=== PATIENT | female | born 1940 | race Caucasian/White ===

== ENCOUNTER 2023-10-16 08:26 | Outpatient (AMB) | payer MEDICARE, SELFPAY ==
--- NOTE | 2023-10-16 08:33 | A.OFFVIS_ITS ---
Vital Signs 10/16/23 08:36 Height 5 ft 7 in Weight 185 lb BMI 29.0 BP 127/67 Blood Pressure Location Lt brachial Position Sitting Respiration 14 Pulse 100 Pulse Source Pulse Oximeter Pulse Oximetry (%) 96 Oxygen Delivery Method Room Air Intake Visit Reasons: Right knee pain/Injection Allergies penicillin G Allergy (Unknown, Verified 10/16/23 08:37) Unknown Sulfa (Sulfonamide Antibiotics) Allergy (Unknown, Verified 10/16/23 08:37) Unknown dyes Allergy (Unknown, Uncoded 10/16/23 08:37) hyves Medication List - Last Reconciled 10/16/23 by Cookie Hollis LPN aspirin (Adult Aspirin Regimen) 81 mg PO DAILY cholecalciferol (vitamin D3) 25 mcg PO DAILY folic acid 0.8 mg PO DAILY gabapentin 300 mg PO DAILY lactobacillus combination no.9 (Adult 50 Plus Probiotic) 4,000 mmu cells PO DAILY lisinopril 20 mg PO DAILY magnesium aspart,citrate,oxide mg PO spironolactone mg PO HPI HPI Right knee pain/Injection: Details: 83-year-old female who presents today to the office for a right knee pain/injection. Denies any recent cough, cold, infection, fever or other significant changes in medical history since last office visit.? She reports knee pain that started more than 5 years ago. She has low back pain that radiates down to the right leg and great toe. The pain is usually 7-8/10 intensity. She states that hiking and climbing makes the pain worse. She has a history of end-stage OA of the knees and gets knee injections every three months. She had fractured her right leg above the ankle in the past. She was using an ankle brace and had completed physical therapy. She does swim at [employer]. She uses a wooden cane for ambulation. She will travel on October 29, 2023, and wants her knee injected prior. [facility] Medical History (Updated 10/20/23 @ 13:43 by George Hill MD) Urinary frequency Unspecified osteoarthritis, unspecified site Sciatica of right side Polyp of sigmoid colon LBBB (left bundle branch block) Impaired gait Hypomagnesemia HTN (hypertension) History of COVID-19 Family history of nephrolithiasis Cataracts, bilateral Arthritis of right knee Aneurysm, ascending aorta Surgical History (Updated 10/16/23 @ 04:21 by Pancho Alberto) History of cholecystectomy History of oophorectomy, unilateral H/O: hysterectomy Review of Systems Const All systems reviewed & are unremarkable except as noted in HPI and below Physical Exam Vital Signs: Last Vital Signs Pulse 100 10/16/23 08:36 Resp 14 10/16/23 08:36 BP 127/67 10/16/23 08:36 Pulse Ox 96 10/16/23 08:36 Oxygen Delivery Method Room Air 10/16/23 08:36 BMI result Body Mass Index 29.0 General: Appears afebrile. Alert and oriented. Mood and affect appropriate. Follows and participates in conversation appropriately. Respiratory effort is unlabored. Able to transition from sit to stand unassisted. Ambulates with bilaterally normal heel strike and toe off. Office Procedures Joint Injection/Aspiration Joint Injection/Aspiration Details: Right knee intraarticular injection, US guided. Primary Site: right knee Prep: site was prepped using sterile technique Injected: 40 mg of, Kenalog, with 3 mL of and 1% plain lidocaine Approach Used: anteromedial Procedure: The patient tolerated the procedure well Coding Details: An ultrasound image of the injection was taken and stored in the permanent record. - Large joint (right, US guided) Procedure code (CPT) selection complete Results Reviewed Results Reviewed: No imaging is available for review. Assessment & Plan Assessment & Plan (1) Arthritis of right knee: Code(s): M17.11 - Unilateral primary osteoarthritis, right knee Category: Medical Plan Patient is status post right knee intraarticular injection, US guided. Patient tolerated procedure well and was discharged home in stable condition with discharge instructions.? All questions were answered. Follow-up as needed. In case of lack of response, may repeat injection via different approach. Scribed for Dr. Hill by Pancho Alberto, medical technologist chemistry, on 10/16/2023. I, Dr. Hill, have personally reviewed and agree with the information entered by the scribe. Coding Level of Care Code New Pt Level 3 (29150) Diagnoses Arthritis of right knee M17.11 CPT Codes Coding - Large joint: 43867 - Large joint ([id number])
[2023-10-16 08:36] VITALS: BP 127/67; PULSE 100; RESP 14; O2SAT 96; BMI 29.0
== END 2023-10-16 09:01 | disposition home or self-care (01) ==
PROVIDERS: PCP Internal Medicine; Visit Provider Internal Medicine
DX: M17.11 Unilateral primary osteoarthritis, right knee (principal)
CPT/HCPCS: 20611; 99203

== ENCOUNTER → 2023-10-16 08:26 | Outpatient (BNVA) | payer MEDICARE, SELFPAY | PROVIDERS: PCP Internal Medicine; Visit Provider Internal Medicine | DX: M17.11 Unilateral primary osteoarthritis, right knee (principal) | CPT/HCPCS: 20611; 99202; J2795; J3301 ==